=== PATIENT | male | born 1940 | race Caucasian/White ===

== ENCOUNTER → 2016-05-04 | Outpatient (REF) | payer MEDICARE, OTHER | LOC: M LAB REF 16:50 | PROVIDERS: ATTEND Internal Medicine | DX: G60.9 Hereditary and idiopathic neuropathy, unspecified (principal) ==

== ENCOUNTER → 2016-09-15 | Outpatient (CLI) | payer MEDICARE, OTHER ==
[~2016-09-15] MED LIST: ASPI1TAB PO; ATOR1TAB19 PO; FLOM5CAP PO; NOVOINJ2 SC; NOVOINJ2 SQ; VITA100066 PO
== END ==
LOC: M LRY 10:13
PROVIDERS: ATTEND Urology
DX: Z12.5 Encounter for screening for malignant neoplasm of prostate (principal)

== ENCOUNTER → 2016-10-13 | Outpatient (CLI) | payer MEDICARE, BC, OTHER ==
--- NOTE | 2016-10-13 23:03 | ECGEPIP ---
Stationary ECG Study [facility] Test Date: 2016-10-13 Pat Name: CHRISTO WOLF Department: Room: - Gender: M [employer]ner: GLENROY : 1940 Requested By: Mimi Buitrago Order Number: [id number] Reading MD: Sly Stone Measurements Intervals Ava Rate: 64 P: 8 LA: 224 QRS: -18 QRSD: 103 T: 38 QT: 368 QTc: 382 Interpretive Statements SINUS RHYTHM WITH FIRST DEGREE AV BLOCK INFERIOR MYOCARDIAL INFARCTION, PROBABLY OLD NO PRIOR TRACING Electronically Signed On 10-13-2016 23:02:55 EDT by Sly Stone
== END ==
LOC: M EKG 12:10
PROVIDERS: ATTEND Anesthesiology
DX: I44.0 Atrioventricular block, first degree (principal); E11.9 Type 2 diabetes mellitus without complications

== ENCOUNTER 2016-10-19 07:17 | Day surgery (SDC) | payer MEDICARE, BC, OTHER ==
[~2016-10-19] VITALS: Ht 170.2 cm; Wt 79.4 kg
[2016-10-19] MEDS ORDERED: ceFAZolin 1GM INJ (J0690) As Ordered ONE (07:48)
[2016-10-19 08:13] LABS: ANION GAP 7 MEQ/L (8-16); BLOOD UREA NITROGEN 20 MG/DL (7-18); CALCIUM LEVEL 8.7 MG/DL (8.8-10.2); CARBON DIOXIDE LEVEL 28 MEQ/L (21-32); CHLORIDE LEVEL 108 MEQ/L (98-107); CREATININE FOR GFR 0.95 MG/DL (0.70-1.30); GLOMERULAR FILTRATION RATE > 60.0 (>42); GLUCOSE, FASTING 102 MG/DL (83-110); POTASSIUM SERUM 4.3 MEQ/L (3.5-5.1); SODIUM LEVEL 143 MEQ/L (136-145)
[2016-10-19] MEDS ORDERED: BUPIVACAINE HCL 0.25% 30 ML VIAL As Ordered ONE (08:20)
[2016-10-19] MEDS ORDERED: MIDAZOLAM INJ 2 MG/2 ML VIAL (J2250) As Ordered ONE (08:20)
[2016-10-19] MEDS ORDERED: fentaNYL 100 MCG/2 ML INJECTION (J3010) As Ordered ONE (08:20)
[2016-10-19] MEDS ORDERED: ONDANSETRON 4MG/2ML VIAL (J2405) As Ordered ONE (08:22)
[2016-10-19] MEDS ORDERED: dexameTHASONE 4 MG/ML 1ML VIAL (J1100) As Ordered ONE (08:22)
[2016-10-19] MEDS ORDERED: NEOSTIGMINE 1MG/ML 5 ML SYRINGE (J2710) As Ordered ONE (08:22)
[2016-10-19] MEDS ORDERED: PROPOFOL 200 MG/20 ML VIAL As Ordered ONE (08:22)
[2016-10-19] MEDS ORDERED: KETOROLAC 60 MG/2 ML VIAL (J1885) As Ordered ONE (08:22)
[2016-10-19] MEDS ORDERED: ROCURONIUM BROMIDE 50 MG/5 ML VIAL/SYRINGE As Ordered ONE (08:22)
[2016-10-19] MEDS ORDERED: GLYCOPYRROLATE INJ 0.2 MG/ML 2 ML VIAL As Ordered ONE (08:22)
[2016-10-19] MEDS ORDERED: BUPIVACAINE/EPIN 0.25% 30 ML VIAL As Ordered ONE (08:24)
[2016-10-19] MEDS ORDERED: LR 1,000 ML IV ONE (08:30)
[2016-10-19] MEDS ORDERED: D5/0.45%NACL 1000ML IV ONE (08:33)
[2016-10-19] MEDS ORDERED: ceFAZolin SOD 1 GM in D5W MINI-BAG PLUS 50 ML IV ONE (09:00)
[2016-10-19] MEDS ORDERED: LR 1,000 ML IV SCH ×3 (09:00→11:00)
--- NOTE | 2016-10-19 10:21 | RO ---
DATE OF PROCEDURE: 10/19/2016 PREOPERATIVE DIAGNOSIS: Left inguinal hernia. POSTOPERATIVE DIAGNOSIS: Left inguinal hernia. PROCEDURE: Laparoscopic left inguinal hernia repair (TEP). SURGEON: Dr. Pete Crisostomo SQUEEGEER AND FORMER: ANESTHESIA: General endotracheal anesthesia. ESTIMATED BLOOD LOSS: Minimal. FLUIDS: Crystalloid. BRIEF PROCEDURE SUMMARY: The patient was brought to the operating room and was given general anesthesia. After adequate anesthesia and preoperative antibiotics were given, the patient was prepped and draped in a sterile fashion. Next, a periumbilical incision was made with a skin knife. Blunt dissection was carried down to fascia. The fascia was grasped with Laz clamps and a longitudinal incision was made in the fascia and the rectus muscle was retracted laterally and anteriorly. Finger dissection posterior to the rectus muscle was performed and then a balloon dissector was placed in the preperitoneal space and insufflated to 15 mm of pressure. A 10 mm stationary trocar at the umbilicus was placed and then under direct visualization two 5 mm trocars were placed along the inferior umbilical area. Next, the left inguinal area was dissected out using hook cautery on loose areolar tissue behind the pubis, Ramiro's ligament and then lateral to the cord structures the loose areolar tissue was taken down with hook cautery as well. Dissection continued up to the cord structures where the relatively large inguinal hernia was appreciated. The patient had previously been placed in Trendelenburg and the inguinal hernia had been easily reduced. The peritoneum was followed up into the cord structure/inguinal internal ring and mobilized out of the internal ring using some blunt dissection as well as some hook cautery. Eventually, the peritoneum was mobilized adequately and mobilized off the cord structures itself and the vas to where the vas dove deep into the pelvis. Once there was adequate placement of the peritoneum medially, the valley between the bladder and the vessels were created using some minimal blunt dissection as well as hook cautery and the loose areolar tissue as well. 3DMax mesh, large, was placed in the left inguinal area and tacked in at pubis, Ramiro's, along the tail of the mesh and anteriorly. The peritoneum was returned to its preperitoneal space after desufflation of the preperitoneal space and all trocars were removed under direct visualization. #0 Vicryl was used to close the fascia at the umbilicus and all incisions were closed with #4-0 Vicryl. Steri-Strips and a dry sterile dressing was applied. The patient was awakened, extubated and brought to the recovery room awake, alert and hemodynamically stable. Sponge and needle counts were correct times two.
[2016-10-19] MEDS ORDERED: NORCO, ANEXSIA 5/325MG TABLET (HYDROcodone/ACETAMINOPHEN) PO PRN (11:00)
[2016-10-19] MEDS ORDERED: MORPHINE 2 MG/ML 1ML SYRINGE IV PRN (11:00)
[2016-10-19] MEDS ORDERED: METOCLOPRAMIDE INJ 10MG/2ML VIAL (J2765) IV PRN (11:00)
[2016-10-19] MEDS ORDERED: fentaNYL 100 MCG/2 ML INJECTION (J3010) IV PRN (11:00)
[2016-10-19] MEDS ORDERED: ONDANSETRON 4MG/2ML VIAL (J2405) IV PRN ×2 (11:00)
[2016-10-19] MEDS ORDERED: PERCOCET 5MG/325MG TAB PO PRN (11:00)
[2016-10-19 13:25] VITALS: BP 143/68
== END 2016-10-19 13:28 | disposition home or self-care (01) ==
LOC: M SDC 07:17
PROVIDERS: ATTEND Surgery
DX: K40.90 Unilateral inguinal hernia, without obstruction or gangrene, not specified as recurrent (principal); E10.9 Type 1 diabetes mellitus without complications; E78.5 Hyperlipidemia, unspecified; M12.9 Arthropathy, unspecified; N40.0 Benign prostatic hyperplasia without lower urinary tract symptoms; H26.9 Unspecified cataract; Z79.899 Other long term (current) drug therapy; Z79.82 Long term (current) use of aspirin; Z79.4 Long term (current) use of insulin
CPT/HCPCS: 36415; 49650; 80048; C1781; J0690; J1100; J2250; J2405; J2710; J3010

== ENCOUNTER → 2016-12-14 | Outpatient (REF) | payer MEDICARE, OTHER | LOC: M LAB REF 17:07 | PROVIDERS: ATTEND Podiatrist Foot & Ankle Surgery | DX: L03.031 Cellulitis of right toe (principal) ==

== ENCOUNTER → 2017-07-05 | Outpatient (CLI) | payer MEDICARE, OTHER ==
[2017-07-05 12:39] LABS: ALBUMIN/GLOBULIN RATIO 1.29 (1.00-1.93); ALKALINE PHOSPHATASE 41 U/L (45-117); ALT/SGPT 25 U/L (12-78); ANION GAP 5 MEQ/L (8-16); AST/SGOT 17 U/L (7-37); BILIRUBIN,DIRECT 0.2 MG/DL (0.0-0.2); BILIRUBIN,TOTAL 0.9 MG/DL (0.2-1.0); BLOOD UREA NITROGEN 22 MG/DL (7-18); CALCIUM LEVEL 8.9 MG/DL (8.8-10.2); CARBON DIOXIDE LEVEL 29 MEQ/L (21-32); CHLORIDE LEVEL 106 MEQ/L (98-107); CHOLESTEROL LEVEL 146 MG/DL (<200); CHOLESTEROL RISK RATIO 2.703 (<5); CREATININE FOR GFR 1.01 MG/DL (0.70-1.30); GLOMERULAR FILTRATION RATE > 60.0 (>42); GLUCOSE, FASTING 155 MG/DL (70-100); HDL CHOLESTEROL 54 MG/DL (>40); NON-HDL-C 92 MG/DL; PHOSPHORUS LEVEL 3.9 MG/DL (2.5-4.9); POTASSIUM SERUM 4.6 MEQ/L (3.5-5.1); SODIUM LEVEL 140 MEQ/L (136-145); TOTAL PROTEIN 7.1 GM/DL (6.4-8.2); TRIGLYCERIDES LEVEL 95 MG/DL (<150)
== END ==
LOC: M LRY 07:53
DX: I71.2 Thoracic aortic aneurysm, without rupture (principal); E78.2 Mixed hyperlipidemia
CPT/HCPCS: 80076

== ENCOUNTER → 2018-06-01 | Outpatient (REF) | payer MEDICARE, OTHER ==
[~2018-06-01] MED LIST changes: +FLOM0.4C39 PO; -FLOM5CAP PO
[2018-06-06 13:23] LABS: PERCENT SATURATION 6.9 % (19.7-50.0)
== END ==
LOC: M LAB REF 11:55
PROVIDERS: ATTEND Internal Medicine
DX: D64.9 Anemia, unspecified (principal)

== ENCOUNTER → 2018-07-17 | Outpatient (CLI) | payer MEDICARE, OTHER ==
[~2018-07-17] MED LIST changes: -ASPI1TAB PO; +ASPI81TA26 PO
[2018-07-17 12:19] LABS: BASO # 0.1 10^3/uL (0.0-0.2); BASO % 0.7 % (0.0-1.0); EOS # 0.2 10^3/uL (0.0-0.50); EOS % 3.1 % (0.0-3.0); HEMATOCRIT 42.5 % (42.0-52.0); LYMPH % 27.3 % (24.0-44.0); MEAN CORPUSCULAR HEMOGLOBIN 24.5 pg (27.0-33.0); MEAN CORPUSCULAR HGB CONC 30.6 g/dl (32.0-36.5); MONO # 0.6 10^3/uL (0.0-0.8); MONO % 8.4 % (0.0-5.0); NEUTROPHILS # 4.5 10^3/uL (1.8-7.7); NEUTROPHILS % 60.4 % (36.0-66.0); PLATELET COUNT, AUTOMATED 160 10^3/uL (150-450); RED BLOOD COUNT 5.31 10^6/uL (4.30-6.10); WHITE BLOOD COUNT 7.4 10^3/uL (4.0-10.0)
[2018-07-17 13:01] LABS: ALBUMIN 3.5 GM/DL (3.2-5.2); ALT/SGPT 22 U/L (12-78); BILIRUBIN,TOTAL 0.4 MG/DL (0.2-1.0); BLOOD UREA NITROGEN 19 MG/DL (7-18); CALCIUM LEVEL 8.7 MG/DL (8.8-10.2); CARBON DIOXIDE LEVEL 26 MEQ/L (21-32); CHLORIDE LEVEL 105 MEQ/L (98-107); CREATININE FOR GFR 0.92 MG/DL (0.70-1.30); FOLATE 12.4 NG/ML (>5.4); GLOMERULAR FILTRATION RATE > 60.0 (>42); GLUCOSE, FASTING 106 MG/DL (70-100); POTASSIUM SERUM 4.1 MEQ/L (3.5-5.1); RHEUMATOID FACTOR QUANT < 10.0 IU/ML (<15.0); SODIUM LEVEL 139 MEQ/L (136-145); THYROXINE (T4) 7.3 UG/DL (4.5-12.0); TOTAL PROTEIN 6.6 GM/DL (6.4-8.2); VITAMIN B12 LEVEL 388 PG/ML (247-911)
[2018-07-17 13:22] LABS: ERYTHROCYTE SEDIMENTATION RATE 4 mm/hr (0-20)
[2018-07-22 00:07] LABS: ANTINUCLEAR ANTIBODIES DIRECT Negative (Negative); VITAMIN B1 LEVEL WHOLE BLOOD 146.7 nmol/L (66.5-200.0); VITAMIN B6,PYRIDOXAL PHOSPHATE 18.6 ug/L (5.3-46.7); VITAMIN E(ALPHA TOCOPHEROL) 7.3 mg/L (9.0-29.0); VITAMIN E(GAMMA TOCOPHEROL) 0.6 mg/L (0.5-4.9)
== END ==
LOC: M LRY 10:04
PROVIDERS: ATTEND Psychiatry & Neurology Neurology
DX: F03.90 Unspecified dementia, unspecified severity, without behavioral disturbance, psychotic disturbance, mood disturbance, and anxiety (principal); E07.9 Disorder of thyroid, unspecified

== ENCOUNTER 2018-08-14 09:21 | Day surgery (SDC) | payer MEDICARE, BC, OTHER ==
[~2018-08-14] VITALS: Ht 170.2 cm; Wt 78.5 kg
[~2018-08-14 09:21] MED LIST changes: +DONE10TA90 PO; +FERR325T16 PO; +LISI-542 PO; +LUTE6CAP PO; +MEMA1TAB2 PO; +METF500T13 PO; +MULTCAP PO; +NS 1,000 ML IV ONE; +STOO100C PO
[2018-08-14] MEDS ORDERED: LIDOCAINE 2% INJ 100 MG/5 ML SDV (FOR ANES.) As Ordered ONE (10:55)
[2018-08-14] MEDS ORDERED: PROPOFOL 500 MG/50 ML VIAL As Ordered ONE (10:55)
--- NOTE | 2018-08-14 10:59 | ROOR ---
Patient Name: Wesley Earl Procedure Date: 08/14/2018 10:38 AM Date of : 1940 Age: 77 Room: [facility] Gender: Male Note Status: Finalized Procedure: Upper GI endoscopy + Small bowel bx. Indications: Iron deficiency anemia Providers: Jeff Solis MD Referring MD: Danii Stringer DO Requesting Provider: Medicines: Monitored Anesthesia Care Complications: No immediate complications. Procedure: Pre-Anesthesia Assessment: - The heart rate, respiratory rate, oxygen saturations, blood pressure, adequacy of pulmonary ventilation, and response to care were monitored throughout the procedure. The Endoscope was introduced through the mouth, and advanced to the second part of duodenum. The upper GI endoscopy was accomplished without difficulty. The patient tolerated the procedure well. Findings: The Z-line was regular and was found 40 cm from the incisors. Multiple biopsies were obtained with cold forceps for evaluation to rule out Rasmussen's Esophagus randomly at the gastroesophageal junction. A small hiatal hernia was present. No other significant abnormalities were identified in a careful examination of the stomach. The exam of the duodenum was otherwise normal. Biopsies for histology were taken with a cold forceps in the first portion of the duodenum for evaluation of celiac disease. For hemostasis, one hemostatic clip was successfully placed (MR conditional). There was no bleeding at the end of the procedure. The exam was otherwise without abnormality. Impression: - Z-line regular, 40 cm from the incisors. - Small hiatal hernia. - The examination was otherwise normal. - Multiple biopsies were obtained at the gastroesophageal junction. - Biopsies were taken with a cold forceps for evaluation of celiac disease. - One hemostatic clip was successfully placed (MR conditional). - The examination was otherwise normal. Recommendation: - Discharge patient to home. - Resume previous diet. - Continue present medications. - Await pathology results. - Return to referring physician. - Telephone GI clinic for pathology results in 1 week. - The findings and recommendations were discussed with the patient's family. Jeff Solis MD Jeff Solis MD 08/14/2018 10:58:40 AM Electronically signed by Jeff Solis MD Number of Addenda: 0 Note Initiated On: 08/14/2018 10:38 AM Estimated Blood Loss: Estimated blood loss: none.
--- NOTE | 2018-08-14 11:30 | ROOR ---
Patient Name: Wesley Earl Procedure Date: 08/14/2018 10:38 AM Date of : 1940 Age: 77 Room: [facility] Gender: Male Note Status: Finalized Procedure: Total Colonoscopy to Cecum + Cold Snare Polypectomy + Hemoclips Indications: Iron deficiency anemia Providers: Jeff Solis MD Referring MD: Danii Stringer DO Requesting Provider: Medicines: Monitored Anesthesia Care Complications: No immediate complications. Procedure: Pre-Anesthesia Assessment: - The heart rate, respiratory rate, oxygen saturations, blood pressure, adequacy of pulmonary ventilation, and response to care were monitored throughout the procedure. The Colonoscope was introduced through the anus and advanced to the cecum, identified by appendiceal orifice and ileocecal valve. The colonoscopy was performed without difficulty. The patient tolerated the procedure well. The quality of the bowel preparation was excellent. Findings: The perianal and digital rectal examinations were normal. Non-bleeding internal hemorrhoids were found during retroflexion. The hemorrhoids were small and Grade I (internal hemorrhoids that do not prolapse). Multiple small and large-mouthed diverticula were found in the recto-sigmoid colon, sigmoid colon and descending colon. Three sessile polyps were found in the cecum. The polyps were medium in size. These polyps were removed with a cold snare. Resection and retrieval were complete. To prevent bleeding after the polypectomy, three hemostatic clips were successfully placed (MR conditional). There was no bleeding at the end of the procedure. A small polyp was found at 60 cm proximal to the anus. The polyp was sessile. The polyp was removed with a cold snare. Resection and retrieval were complete. The exam was otherwise without abnormality on direct and retroflexion views. One small angioectasia was found in the cecum. Impression: - Non-bleeding internal hemorrhoids. - Diverticulosis in the recto-sigmoid colon, in the sigmoid colon and in the descending colon. - Three medium polyps in the cecum, removed with a cold snare. Resected and retrieved. Clips (MR conditional) were placed. - One small polyp at 60 cm proximal to the anus, removed with a cold snare. Resected and retrieved. - The examination was otherwise normal on direct and retroflexion views. - One colonic angioectasia. - The exam was otherwise normal to the cecum. Recommendation: - Patient has a contact number available for emergencies. The signs and symptoms of potential delayed complications were discussed with the patient. Return to normal activities tomorrow. Written discharge instructions were provided to the patient. - High fiber diet. - Discharge patient to home. - Continue present medications. - Await pathology results. - Telephone GI clinic for pathology results in 1 week. - Return to referring physician. - The findings and recommendations were discussed with the patient's family. Jeff Solis MD Jeff Solis MD 08/14/2018 11:29:35 AM Electronically signed by Jeff Solis MD Number of Addenda: 0 Note Initiated On: 08/14/2018 10:38 AM Estimated Blood Loss: Estimated blood loss: none.
[2018-08-14 11:58] VITALS: BP 171/76
== END 2018-08-14 12:00 | disposition home or self-care (01) ==
LOC: M OPP 09:21
PROVIDERS: ATTEND Internal Medicine Gastroenterology
DX: D12.0 Benign neoplasm of cecum (principal); K55.20 Angiodysplasia of colon without hemorrhage; K64.0 First degree hemorrhoids; K57.30 Diverticulosis of large intestine without perforation or abscess without bleeding; K44.9 Diaphragmatic hernia without obstruction or gangrene; D50.9 Iron deficiency anemia, unspecified

== ENCOUNTER → 2018-09-19 | Outpatient (REF) | payer MEDICARE, OTHER ==
[~2018-09-19] MED LIST changes: +MEMA10TA19 PO; -MEMA1TAB2 PO; +MM S100C PO; -NS 1,000 ML IV ONE; -STOO100C PO
[2018-09-19 14:24] LABS: PERCENT SATURATION 52.9 % (19.7-50.0)
== END ==
LOC: M LAB REF 13:18
PROVIDERS: ATTEND Internal Medicine
DX: D64.9 Anemia, unspecified (principal)

== ENCOUNTER → 2018-12-07 | Outpatient (REF) | payer MEDICARE, OTHER ==
[~2018-12-07] MED LIST changes: -MEMA10TA19 PO; +MEMA1TAB2 PO
[2018-12-07 13:37] LABS: PERCENT SATURATION 51.6 % (19.7-50.0)
== END ==
LOC: M LAB REF 12:24
PROVIDERS: ATTEND Internal Medicine
DX: D50.9 Iron deficiency anemia, unspecified (principal)

== ENCOUNTER → 2022-10-08 | Outpatient (CLI) | payer MEDICARE, BC, OTHER ==
[~2022-10-08] MED LIST changes: +FERR324T21 PO; -FERR325T16 PO; -LISI-542 PO; +LISI5TAB11 PO; +MEMA10TA19 PO; -MEMA1TAB2 PO
== END ==
LOC: M RAD 09:09
PROVIDERS: ATTEND Psychiatry & Neurology Neurology
DX: R29.6 Repeated falls (principal); R41.82 Altered mental status, unspecified

== ENCOUNTER → 2022-12-17 | Outpatient (REF) | payer MEDICARE, BC, OTHER ==
[2022-12-17 17:21] LABS: INR 1.13; PROTHROMBIN TIME 14.2 SECONDS (12.5-14.5)
[2022-12-17 17:22] LABS: PARTIAL THROMBOPLASTIN TIME 29.3 SECONDS (24.8-34.2)
== END ==
LOC: M LAB REF 16:10
PROVIDERS: ATTEND Internal Medicine
DX: R04.0 Epistaxis (principal)

== ENCOUNTER → 2023-03-25 | Outpatient (REF) | payer MEDICARE, OTHER | LOC: M LAB REF 12:35 | PROVIDERS: ATTEND Internal Medicine | DX: D64.9 Anemia, unspecified (principal) ==

== ENCOUNTER 2023-03-30 12:30 | Emergency (ER) | payer MEDICARE, BC, OTHER ==
[~2023-03-30] VITALS: Ht 172.7 cm; Wt 72.7 kg
[2023-03-30 13:25] LABS: BASO % 0.5 % (0.0-1.0); EOS # 0.1 10^3/uL (0.0-0.5); EOS % 1.1 % (0.0-3.0); HEMOGLOBIN 13.3 g/dl (13.5-17.5); LYMPH % 12.1 % (24.0-44.0); MEAN CORPUSCULAR HEMOGLOBIN 30.2 pg (27.0-33.0); MEAN CORPUSCULAR HGB CONC 33.3 g/dl (32.0-36.5); MEAN CORPUSCULAR VOLUME 90.9 fl (80.0-96.0); MONO # 0.5 10^3/uL (0.0-0.8); MONO % 5.6 % (2.0-8.0); NEUTROPHILS # 6.8 10^3/uL (1.5-8.5); NEUTROPHILS % 80.3 % (36.0-66.0); PLATELET COUNT, AUTOMATED 157 10^3/uL (150-450); WHITE BLOOD COUNT 8.5 10^3/uL (4.0-10.0)
[2023-03-30 14:00] LABS: BLOOD UREA NITROGEN 32 MG/DL (9-23); CALCIUM LEVEL 8.8 MG/DL (8.3-10.6); CARBON DIOXIDE LEVEL 30 MMOL/L (20-31); CHLORIDE LEVEL 105 MMOL/L (98-107); CREATININE FOR GFR 0.97 MG/DL (0.70-1.30); GLOMERULAR FILTRATION RATE > 60.0 (>35); GLUCOSE, FASTING 77 MG/DL (74-106); MAGNESIUM LEVEL 2.1 MG/DL (1.8-2.4); POTASSIUM SERUM 3.8 MMOL/L (3.5-5.1); SODIUM LEVEL 139 MMOL/L (136-145)
[2023-03-30 14:03] LABS: FREE T4 0.97 NG/DL (0.89-1.76); THYROID STIMULATING HORMONE 5.613 uIU/ML (0.55-4.78)
[2023-03-30 14:45] VITALS: BP 112/62
[2023-03-30 14:52] VITALS: TEMP 96.5; O2SAT 97
== END 2023-03-30 15:10 | disposition home or self-care (01) ==
LOC: M ED 12:30 → EDBD 12:30 → M ED 15:10
DX: G40.89 Other seizures (principal); E10.649 Type 1 diabetes mellitus with hypoglycemia without coma; R29.6 Repeated falls; I10 Essential (primary) hypertension; Z79.899 Other long term (current) drug therapy; Z79.82 Long term (current) use of aspirin; Z79.4 Long term (current) use of insulin

== ENCOUNTER → 2023-06-07 | Outpatient (CLI) | payer MEDICARE, BC ==
[~2023-06-07] MED LIST changes: +MEMA10TA PO; -MEMA10TA19 PO
== END ==
LOC: M PLAIMG 12:40
PROVIDERS: ATTEND Internal Medicine
DX: I35.1 Nonrheumatic aortic (valve) insufficiency (principal)

== ENCOUNTER → 2023-06-23 | Outpatient (REF) | payer MEDICARE, BC | LOC: M LAB REF 16:24 | PROVIDERS: ATTEND Internal Medicine | DX: D51.9 Vitamin B12 deficiency anemia, unspecified (principal) ==

== ENCOUNTER → 2023-12-20 | Outpatient (REF) | payer MEDICARE, OTHER | LOC: M LAB REF 12:05 | PROVIDERS: ATTEND Internal Medicine | DX: D51.9 Vitamin B12 deficiency anemia, unspecified (principal) ==

== ENCOUNTER 2024-03-07 12:16 | Emergency (ER) | payer MEDICARE, BC ==
[2024-03-07 12:51] LABS: BASO # 0.1 10^3/uL (0.0-0.2); BASO % 0.6 % (0.0-1.0); EOS # 0.2 10^3/uL (0.0-0.5); EOS % 1.9 % (0.0-3.0); HEMATOCRIT 40.9 % (42.0-52.0); HEMOGLOBIN 13.6 g/dl (13.5-17.5); LYMPH # 1.7 10^3/uL (1.5-5.0); LYMPH % 19.1 % (24.0-44.0); MEAN CORPUSCULAR HEMOGLOBIN 30.4 pg (27.0-33.0); MEAN CORPUSCULAR HGB CONC 33.3 g/dl (32.0-36.5); MEAN CORPUSCULAR VOLUME 91.3 fl (80.0-96.0); MONO # 0.6 10^3/uL (0.0-0.8); MONO % 6.8 % (2.0-8.0); NEUTROPHILS # 6.2 10^3/uL (1.5-8.5); NEUTROPHILS % 71.5 % (36.0-66.0); PLATELET COUNT, AUTOMATED 144 10^3/uL (150-450); RED BLOOD COUNT 4.48 10^6/uL (4.30-6.10); WHITE BLOOD COUNT 8.7 10^3/uL (4.0-10.0)
[2024-03-07] MEDS: NS (Normal Saline) 0.9% 1,000 ML IV SCH (13:04)
[2024-03-07 13:17] LABS: ALBUMIN 3.4 G/DL (3.2-5.2); ALKALINE PHOSPHATASE 47 U/L (40-129); ALT/SGPT 17 U/L (7.0-40); AST/SGOT 12 U/L (<34); BILIRUBIN,DIRECT 0.2 MG/DL (<0.4); BILIRUBIN,TOTAL 0.5 MG/DL (0.3-1.2); BLOOD UREA NITROGEN 31 MG/DL (9-23); CALCIUM LEVEL 8.6 MG/DL (8.3-10.6); CARBON DIOXIDE LEVEL 28 MMOL/L (20-31); CHLORIDE LEVEL 108 MMOL/L (98-107); CK-MB VALUE MASS 1.8 NG/ML (<3.6); CPK CREATINE PHOSPHOKINASE 134 U/L (46-171); CREATININE FOR GFR 1.06 MG/DL (0.70-1.30); GLOMERULAR FILTRATION RATE > 60.0 (>35); GLUCOSE, FASTING 97 MG/DL (74-106); MAGNESIUM LEVEL 1.9 MG/DL (1.8-2.4); MB/CK RELATIVE INDEX 1.34 (< OR =4); PHOSPHORUS LEVEL 3.2 MG/DL (2.4-5.1); POTASSIUM SERUM 3.6 MMOL/L (3.5-5.1); SODIUM LEVEL 142 MMOL/L (136-145); TOTAL PROTEIN 6.2 G/DL (5.7-8.2)
[2024-03-07 13:18] LABS: FREE T4 0.96 NG/DL (0.89-1.76)
[2024-03-07 13:19] LABS: THYROID STIMULATING HORMONE 7.478 uIU/ML (0.55-4.78)
[2024-03-07 14:14] LABS: CK-MB VALUE MASS 1.7 NG/ML (<3.6)
[2024-03-07 14:22] LABS: MB/CK RELATIVE INDEX 1.24 (< OR =4)
[2024-03-07 16:45] VITALS: BP 144/79; TEMP 98.4; O2SAT 95
== END 2024-03-07 17:36 | disposition home or self-care (01) ==
LOC: M ED 12:16 → EDBD 12:16 → M ED 17:36
DX: R55 Syncope and collapse (principal); E11.9 Type 2 diabetes mellitus without complications; I10 Essential (primary) hypertension; G30.9 Alzheimer's disease, unspecified; R32 Unspecified urinary incontinence; Z79.82 Long term (current) use of aspirin; Z79.4 Long term (current) use of insulin; Z79.899 Other long term (current) drug therapy

== ENCOUNTER 2024-04-09 12:59 | Observation (INO) | payer MEDICARE, BC ==
[~2024-04-09] VITALS: Ht 157.5 cm; Wt 70.5 kg
[2024-04-09 13:54] LABS: KETONE, URINE AUTO RFX 1+ mg/dL (NEGATIVE); LEUKOCYTE ESTERASE UR AUTO RFX NEGATIVE (NEGATIVE); MUCUS, URINE RFX SMALL (NEGATIVE); NITRITE, URINE AUTO RFX NEGATIVE (NEGATIVE); RBC, URINE AUTO RFX 14 /HPF (0-3); SQUAM EPITHELIAL CELL UR AURFX 0 /HPF (0-6); WBC, URINE AUTO RFX 1 /HPF (0-3)
[2024-04-09 14:20] LABS: BASO # 0.1 10^3/uL (0.0-0.2); BASO % 0.4 % (0.0-1.0); EOS # 0.1 10^3/uL (0.0-0.5); EOS % 0.5 % (0.0-3.0); HEMATOCRIT 48.7 % (42.0-52.0); HEMOGLOBIN 16.3 g/dl (13.5-17.5); LYMPH # 1.2 10^3/uL (1.5-5.0); LYMPH % 10.3 % (24.0-44.0); MEAN CORPUSCULAR HEMOGLOBIN 30.4 pg (27.0-33.0); MEAN CORPUSCULAR HGB CONC 33.5 g/dl (32.0-36.5); MEAN CORPUSCULAR VOLUME 90.9 fl (80.0-96.0); MONO # 0.7 10^3/uL (0.0-0.8); MONO % 6.4 % (2.0-8.0); NEUTROPHILS # 9.1 10^3/uL (1.5-8.5); PLATELET COUNT, AUTOMATED 180 10^3/uL (150-450); RED BLOOD COUNT 5.36 10^6/uL (4.30-6.10); WHITE BLOOD COUNT 11.1 10^3/uL (4.0-10.0)
[2024-04-09 14:53] LABS: CPK CREATINE PHOSPHOKINASE 118 U/L (46-171); MB/CK RELATIVE INDEX 2.54 (< OR =4)
[2024-04-09 15:02] LABS: BLOOD UREA NITROGEN 38 MG/DL (9-23); CALCIUM LEVEL 9.7 MG/DL (8.3-10.6); CARBON DIOXIDE LEVEL 28 MMOL/L (20-31); CHLORIDE LEVEL 106 MMOL/L (98-107); CREATININE FOR GFR 0.97 MG/DL (0.70-1.30); GLOMERULAR FILTRATION RATE > 60.0 (>35); GLUCOSE, FASTING 177 MG/DL (74-106); POTASSIUM SERUM 4.1 MMOL/L (3.5-5.1); SODIUM LEVEL 144 MMOL/L (136-145)
[2024-04-09] MEDS: NS 500 ML IV ONE (15:40)
[2024-04-09] MEDS ORDERED: OLANZapine INTRAMUSCULAR 10MG VIAL IM PRN (16:35)
[2024-04-09] MEDS ORDERED: ACETAMINOPHEN 325 MG TAB PO PRN (16:35)
[2024-04-09] MEDS: NS (Normal Saline) 0.9% 1,000 ML IV SCH (16:55)
[2024-04-09] MEDS ORDERED: MIRA3350 PO (18:44)
[2024-04-09] MEDS ORDERED: ZINC220CA PO (18:44)
[2024-04-09] MEDS ORDERED: VITA200021 PO (18:44)
[2024-04-09] MEDS ORDERED: MULT-40 PO (18:44)
[2024-04-09] MEDS ORDERED: HOME MED LIST COMPLETE! XX SCH (18:45)
[2024-04-09] MEDS: DOCUSATE SODIUM 100MG CAPSULE PO SCH (20:40)
[2024-04-09] MEDS: NovoLOG MIX 70/30 PER UNIT SC SCH (20:40)
[2024-04-09 22:00] VITALS: BP 144/68; TEMP 98.4; O2SAT 96
[2024-04-09] MEDS: QUEtiapine FUMARATE 25 MG TAB PO SCH (23:43)
[2024-04-10 04:40] VITALS: BP 148/62; TEMP 98.1; O2SAT 95
[2024-04-10 07:03] LABS: HEMATOCRIT 42.3 % (42.0-52.0); HEMOGLOBIN 14.1 g/dl (13.5-17.5); MEAN CORPUSCULAR HEMOGLOBIN 30.1 pg (27.0-33.0); MEAN CORPUSCULAR HGB CONC 33.3 g/dl (32.0-36.5); MEAN CORPUSCULAR VOLUME 90.2 fl (80.0-96.0); PLATELET COUNT, AUTOMATED 164 10^3/uL (150-450); RED BLOOD COUNT 4.69 10^6/uL (4.30-6.10); WHITE BLOOD COUNT 7.8 10^3/uL (4.0-10.0)
[2024-04-10 07:22] LABS: BLOOD UREA NITROGEN 29 MG/DL (9-23); CALCIUM LEVEL 8.2 MG/DL (8.3-10.6); CARBON DIOXIDE LEVEL 27 MMOL/L (20-31); CHLORIDE LEVEL 108 MMOL/L (98-107); CREATININE FOR GFR 0.85 MG/DL (0.70-1.30); GLOMERULAR FILTRATION RATE > 60.0 (>35); GLUCOSE, FASTING 82 MG/DL (74-106); SODIUM LEVEL 144 MMOL/L (136-145)
[2024-04-10 07:51] VITALS: BP 141/65; TEMP 98.6; O2SAT 96
[2024-04-10] MEDS: NovoLOG MIX 70/30 PER UNIT SQ SCH (08:14)
[2024-04-10] MEDS: ENOXAPARIN 40MG/0.4ML SYRINGE (J1650 PER 10MG) SC SCH (08:37)
[2024-04-10] MEDS: MIRALAX *UNIT DOSE* 17GM PACKET PO SCH (09:00)
[2024-04-10] MEDS: OMEPRAZOLE 20MG CAP PO SCH (09:00)
[2024-04-10] MEDS: ATORVASTATIN 10 MG TAB PO SCH (09:00)
[2024-04-10] MEDS: TAMSULOSIN 0.4 MG CAP PO SCH (09:00)
[2024-04-10] MEDS: ASPIRIN 81MG ENTERIC TABLET PO SCH (09:00)
[2024-04-10] MEDS ORDERED: LORazepam 1 MG TAB PO PRN (12:25)
[2024-04-10] MEDS ORDERED: HYOSCYAMINE SULFATE 0.125 MG SUBL TABLET PO PRN (12:25)
[2024-04-10] MEDS ORDERED: ATROPINE SULFATE 1% OPHTH SOLN 2ML BTL SL PRN (12:25)
[2024-04-10] MEDS ORDERED: ONDANSETRON 4MG ORAL DISINTEGRATING TAB PO PRN (12:25)
[2024-04-10] MEDS ORDERED: COLA100C5 PO (13:05)
[2024-04-10] MEDS ORDERED: ACET32TAB PO (13:05)
[2024-04-10] MEDS ORDERED: OLAN5ZYD PO (13:05)
== END 2024-04-10 15:44 | disposition hospice, home (50) ==
LOC: M ED 12:59 → EDBD 12:59 → INTOOBSV 16:31 → M ED INP 16:31 → M PCU 22:00
PROVIDERS: ADMIT Internal Medicine Nephrology; ATTEND Internal Medicine Nephrology
DX: E86.0 Dehydration (principal); G30.9 Alzheimer's disease, unspecified; F02.80 Dementia in other diseases classified elsewhere, unspecified severity, without behavioral disturbance, psychotic disturbance, mood disturbance, and anxiety; E11.9 Type 2 diabetes mellitus without complications; E78.5 Hyperlipidemia, unspecified; N40.0 Benign prostatic hyperplasia without lower urinary tract symptoms; K57.90 Diverticulosis of intestine, part unspecified, without perforation or abscess without bleeding; I27.20 Pulmonary hypertension, unspecified; R53.1 Weakness; I35.1 Nonrheumatic aortic (valve) insufficiency; I77.819 Aortic ectasia, unspecified site; R39.81 Functional urinary incontinence; R15.9 Full incontinence of feces; W06.XXXA Fall from bed, initial encounter; Y92.003 Bedroom of unspecified non-institutional (private) residence as the place of occurrence of the external cause; Y93.9 Activity, unspecified; Y99.9 Unspecified external cause status; Z79.899 Other long term (current) drug therapy; Z79.82 Long term (current) use of aspirin; Z79.4 Long term (current) use of insulin
CPT/HCPCS: 36415; 70450; 71045; 80048; 81001; 82550; 82553; 83036; 84484; 85025; 85027; 87040; 87486; 87581; 87633; 87798; 93005; 96372; 97161; 97530; 99285; G0378; J1650; J1815